=== PATIENT | female | born 2000 | race Two or more races ===

== ENCOUNTER 2024-02-18 07:55 | Emergency (ER) | payer OTHER ==
[~2024-02-18] VITALS: Ht 167.6 cm; Wt 53.1 kg
[2024-02-18] MEDS ORDERED: DIPHENHYDRAMINE HCL 50 MG/ML VIAL 1ML ONE ×2 (10:38→10:41)
[2024-02-18] MEDS ORDERED: DIPHENHYDRAMINE HCL 50 MG/ML VIAL 1ML IM ONE (10:45)
[2024-02-18 11:12] LABS: HEMATOCRIT 41.1 % (36.0-45.00); MEAN CELL VOLUME 92.7 fL (80.00-100.00); MEAN CORPUSCULAR HEMOGLOBIN 31.5 pg (27.00-32.0); PLATELET COUNT 238 K/uL (150-450); RED BLOOD COUNT 4.44 M/uL (4.00-6.00); RED CELL DISTRIBUTION WIDTH 12.8 % (11.5-14.5)
== END 2024-02-18 12:30 ==
LOC: ER 07:57
PROVIDERS: General Practice
DX: T78.49XA Other allergy, initial encounter (principal); R21 Rash and other nonspecific skin eruption
CPT/HCPCS: 36415; 96372; 99283; J1200